=== PATIENT | male | born 1995 | race Caucasian/White ===

== ENCOUNTER → 2018-05-03 | Outpatient (CLI) | payer OTHER | LOC: COL.PUL 04-05 10:00 | DX: R06.02 Shortness of breath (principal) ==

== ENCOUNTER → 2018-06-27 | Outpatient (CLI) | payer OTHER | LOC: COL.PUL 10:00 | DX: R06.02 Shortness of breath (principal) | CPT/HCPCS: J7674 ==

== ENCOUNTER 2018-10-20 13:25 | Outpatient (CLI) | payer OTHER ==
[2018-10-20] MEDS ORDERED: ZYRTEC 10MG10 MG PO (14:31)
[2018-10-20] MEDS ORDERED: SPIRIVA RESPIMAT4 GM IH (14:32)
[2018-10-20] MEDS ORDERED: PROAIR HFA0.09 MG/AC IH (14:32)
[2018-10-20 14:33] VITALS: BP 118/75; PULSE 68; TEMP 97.8
[2018-10-20] MEDS ORDERED: RT ADVAIR HFA 2312 G IH (14:33)
--- NOTE | 2018-10-20 16:32 | NUR ---
Pt denies symptoms of reaction after 2 hours post injection.Next apt made.pt discharged ambulatory.
== END 2018-10-20 16:32 | disposition home or self-care (01) ==
LOC: EUO 13:25
DX: J45.909 Unspecified asthma, uncomplicated (principal); Z79.899 Other long term (current) drug therapy
CPT/HCPCS: J2357

== ENCOUNTER 2018-12-06 16:02 | Outpatient (CLI) | payer OTHER ==
[~2018-12-06] VITALS: Ht 175.3 cm; Wt 70.5 kg
[~2018-12-06 16:02] MED LIST: PROAIR HFA0.09 MG/AC IH; RT ADVAIR HFA 2312 G IH; SPIRIVA RESPIMAT4 GM IH; ZYRTEC 10MG10 MG PO
[2018-12-06 16:19] VITALS: BP 118/71; PULSE 77; TEMP 98.1
[2018-12-06] MEDS ORDERED: XOLAIR150 MG SQ (16:22)
== END 2018-12-06 17:10 | disposition home or self-care (01) ==
LOC: EUO 16:02
DX: J45.50 Severe persistent asthma, uncomplicated (principal); Z79.899 Other long term (current) drug therapy

== ENCOUNTER 2019-01-04 15:00 | Outpatient (CLI) | payer OTHER ==
[~2019-01-04] VITALS: Ht 175.3 cm; Wt 68.9 kg
[~2019-01-04 15:00] MED LIST changes: +XOLAIR150 MG SQ
[2019-01-04 15:14] VITALS: BP 122/74; PULSE 86; TEMP 97.7
== END 2019-01-04 15:41 | disposition home or self-care (01) ==
LOC: EUO 15:00
DX: J45.50 Severe persistent asthma, uncomplicated (principal); Z79.899 Other long term (current) drug therapy
CPT/HCPCS: J2357

== ENCOUNTER 2019-02-06 15:01 | Outpatient (CLI) | payer OTHER ==
[~2019-02-06] VITALS: Ht 175.3 cm; Wt 69.5 kg
[2019-02-06 15:12] VITALS: BP 116/71; PULSE 74; TEMP 97.7
== END 2019-02-06 15:44 | disposition home or self-care (01) ==
LOC: EUO 15:01
DX: J45.50 Severe persistent asthma, uncomplicated (principal); Z79.899 Other long term (current) drug therapy

== ENCOUNTER 2019-03-14 09:16 | Outpatient (CLI) | payer OTHER ==
[~2019-03-14] VITALS: Ht 175.3 cm; Wt 69.7 kg
[2019-03-14 09:30] VITALS: BP 109/69; PULSE 68; TEMP 97.8
== END 2019-03-14 09:56 | disposition home or self-care (01) ==
LOC: EUO 09:16
DX: J45.50 Severe persistent asthma, uncomplicated (principal); Z79.899 Other long term (current) drug therapy
CPT/HCPCS: J2357

== ENCOUNTER 2019-04-13 09:12 | Outpatient (CLI) | payer OTHER ==
[~2019-04-13] VITALS: Ht 175.3 cm; Wt 69.0 kg
[2019-04-13 09:41] VITALS: BP 116/70; PULSE 66; TEMP 97.7
== END 2019-04-13 10:02 | disposition home or self-care (01) ==
LOC: EUO 09:12
DX: J45.909 Unspecified asthma, uncomplicated (principal); Z79.899 Other long term (current) drug therapy
CPT/HCPCS: J2357

== ENCOUNTER 2019-06-07 15:28 | Outpatient (CLI) | payer OTHER ==
[~2019-06-07] VITALS: Ht 175.3 cm; Wt 69.0 kg
[2019-06-07 15:36] VITALS: BP 110/78; PULSE 70; TEMP 97.7
== END 2019-06-07 15:48 | disposition home or self-care (01) ==
LOC: EUO 15:28
DX: J45.50 Severe persistent asthma, uncomplicated (principal); Z79.899 Other long term (current) drug therapy
CPT/HCPCS: J2357

== ENCOUNTER 2019-07-06 15:22 | Outpatient (CLI) | payer OTHER ==
[~2019-07-06] VITALS: Ht 175.3 cm; Wt 72.1 kg
[2019-07-06 16:26] VITALS: BP 116/68; PULSE 72; TEMP 98.2
== END 2019-07-06 16:31 | disposition home or self-care (01) ==
LOC: EUO 15:22
DX: J45.909 Unspecified asthma, uncomplicated (principal); Z79.899 Other long term (current) drug therapy
CPT/HCPCS: J2357

== ENCOUNTER 2019-11-01 15:50 | Outpatient (CLI) | payer OTHER ==
[~2019-11-01] VITALS: Ht 175.3 cm; Wt 70.9 kg
[2019-11-01 16:29] VITALS: BP 109/65; PULSE 86; TEMP 98.4
== END 2019-11-01 16:37 | disposition home or self-care (01) ==
LOC: EUO 15:50
DX: J45.909 Unspecified asthma, uncomplicated (principal); Z79.899 Other long term (current) drug therapy
CPT/HCPCS: J2357